=== PATIENT | male | born 1945 | race Caucasian/White ===

== ENCOUNTER 2019-05-06 14:03 | Emergency (ER) | payer SELFPAY ==
[~2019-05-06] VITALS: Ht 170.2 cm; Wt 76.0 kg
[2019-05-06 14:22] VITALS: BP 129/64
== END 2019-05-06 22:08 | disposition left against medical advice (07) ==
LOC: ER 14:03
DX: M10.072 Idiopathic gout, left ankle and foot (principal); Z53.21 Procedure and treatment not carried out due to patient leaving prior to being seen by health care provider